=== PATIENT | female | born 1975 | race Caucasian/White ===

== ENCOUNTER → 2019-09-18 14:50 | Outpatient (BNVA) | payer OTHER, SELFPAY | PROVIDERS: Family Provider Family Medicine; Visit Provider Obstetrics & Gynecology | DX: Z12.4 Encounter for screening for malignant neoplasm of cervix (principal); Z12.39 Encounter for other screening for malignant neoplasm of breast; Z30.9 Encounter for contraceptive management, unspecified | CPT/HCPCS: 88175 ==

== ENCOUNTER → 2019-09-28 10:20 | Outpatient (BNVA) | payer OTHER, SELFPAY | PROVIDERS: Family Provider Family Medicine; Visit Provider Obstetrics & Gynecology | DX: N39.0 Urinary tract infection, site not specified (principal) | CPT/HCPCS: 80053; 87077; 87086; 87186 ==

== ENCOUNTER → 2020-03-12 09:01 | Outpatient (BNVA) | payer OTHER, SELFPAY | PROVIDERS: Family Provider Family Medicine; Referring Provider Family Medicine; Visit Provider Podiatrist Foot & Ankle Surgery | DX: M19.072 Primary osteoarthritis, left ankle and foot (principal); M19.071 Primary osteoarthritis, right ankle and foot; M79.671 Pain in right foot; M79.672 Pain in left foot | CPT/HCPCS: 73630 ==

== ENCOUNTER 2020-11-14 14:12 | Outpatient (CLI) | payer OTHER, SELFPAY ==
--- NOTE | 2020-11-14 14:30 | MM_ITS ---
WS: [id number] SCREENING DIGITAL MAMMOGRAM WITH CAD HISTORY: Z12.39 - Encounter for other screening for malignant neoplasm... COMPARISON: None available. Bilateral CC and MLO views submitted. Computer aided detection analyzed. Breast composition: There are scattered areas of fibroglandular density. No suspicious masses, microc alcifications or architectural distortion. MM/[place] [id number] IMPRESSION: BI-RADS: 1-Negative FOLLOW UP: 1 Year Follow-up
== END 2020-11-14 14:13 | disposition home or self-care (01) ==
LOC: RADSHAW 14:15
PROVIDERS: Family Provider Family Medicine; PCP Family Medicine; Visit Provider Obstetrics & Gynecology
DX: Z12.31 Encounter for screening mammogram for malignant neoplasm of breast (principal)
CPT/HCPCS: 77067

== ENCOUNTER → 2021-07-10 09:42 | Outpatient (BNVA) | payer OTHER, SELFPAY | PROVIDERS: Family Provider Family Medicine; PCP Family Medicine; Visit Provider Family Medicine | DX: Z01.89 Encounter for other specified special examinations (principal); K52.9 Noninfective gastroenteritis and colitis, unspecified; L85.3 Xerosis cutis; K92.1 Melena; R60.0 Localized edema; R63.5 Abnormal weight gain; Z13.220 Encounter for screening for lipoid disorders; Z13.6 Encounter for screening for cardiovascular disorders; Z68.41 Body mass index [BMI] 40.0-44.9, adult; Z76.89 Persons encountering health services in other specified circumstances | CPT/HCPCS: 80053; 80061; 83036; 84439; 84443; 85025 ==

== ENCOUNTER 2021-08-26 07:16 | Day surgery (SDC) | payer OTHER, SELFPAY ==
[2021-08-24 10:02] VITALS: BMI 53.1
--- NOTE | 2021-08-26 07:49 | ANES.PREANE2 ---
Pre-Anesthetic Assessment Height/Weight: Height 1.6 m Weight 136.078 kg Preop Diagnosis: diagnostic Operation Date: 08/26/21 08:45 Proposed Procedures p Colonoscopy 62261/k92.1/k52.9(Not Applicable) - Cristofer Luther MD Familial anesthetic complications: None Was Beta Karla taken within 24 hours: Yes Was Clonidine taken within 24 hours: N/A Social No alcohol and No tobacco Exam alert, oriented x 3, clear to auscultation bilaterally and regular rate & rhythm Airway Submandibular: within normal limits Cervical ROM: within normal limits Mallampati: Class II Dentition: full CV/HEM Hypertension and Murmur Metabolic Morbid Obesity Neuropsych Anxiety and Depression Anesthetic Plan ASA status: 3 Anesthesia: MAC Medications/Allergies Home Medications Medication Instructions Recorded Confirmed Last Taken Type B complex with vitamin 1 cap PO DAILY cap 09/18/19 08/24/21 Unknown History Y-kuhjoljtv-uafa capsule fexofenadine 180 mg tablet 180 mg PO DAILY 09/18/19 08/24/21 Unknown History (Bonnie Allergy) hydrochlorothiazide 25 mg tablet 25 mg PO DAILY 09/18/19 08/24/21 Unknown History multivitamin 1 tab PO DAILY 09/18/19 08/24/21 Unknown History propranolol 40 mg tablet 20 mg PO ONCE tab 09/18/19 08/24/21 Unknown History capsaicin 0.1 % topical cream 1 applic TOPICAL BID #60 g 08/04/20 08/24/21 Unknown Rx norgestimate 0.25 mg-ethinyl 1 tab PO DAILY #84 tab 09/29/20 08/24/21 Unknown Rx estradiol 35 mcg tablet (Sprintec (28)) meloxicam 15 mg tablet 15 mg PO DAILY #30 tab 05/04/21 08/24/21 Unknown Rx fluoxetine 10 mg tablet 10 mg PO DAILY 07/10/21 08/24/21 Unknown History losartan 100 mg tablet 100 mg PO DAILY #90 tab 08/11/21 08/24/21 Unknown Rx Allergies Allergy/AdvReac Type Severity Reaction Status Date / Time nitrofurantoin Allergy Severe rash Verified 08/24/21 09:59 sulfamethoxazole Allergy Intermediate swelling Verified 08/24/21 09:59 [From Bactrim] and spots on leg and stomach trimethoprim [From Bactrim] Allergy Intermediate swelling Verified 08/24/21 09:59 and spots on leg and stomach PFSH Anesthesia Medical History Anxiety Is on propranolol which well controlled her symptoms Benign hypertension States that she has borderline elevated blood pressures as well as anxiety and has been placed on propranolol for this since 2007 by her primary care provider Dr. Mg. She states that this medicine works well for both symptomatologies. Oligomenorrhea 06/02/2015---FZL-fiklwk-0.37, lmzszeryx-lbpmga-13.7, hemogram---8.3<13.9/41.9> 286 Surgical History S/P section 11/26/06- Performed by Dr Osorio at [facility] in [place], [place]. Due to PIH and Failure to progess. S/P dilation and curettage 08/18/16- w/ hysteroscopy performed per Dr. Orozco at [place], [place] Status post endometrial ablation 08/18/16- per Dr. Orozco at [facility] [place] Status post myringotomy with tube placement of both ears 1976- in [place] Family History Father Hyperlipidemia Hypertension Heart disease Family/Other Stroke paternal aunt Diabetes paternal aunt Mother Hypertension Heart disease Grandmother Hypertension maternal and paternal Colon cancer, Onset Age: 84 maternal Grandfather Hypertension maternal and paternal Diabetes maternal Denies family history of Ovarian cancer Clotting disorder Breast cancer Anesthesia complication Bleeding disorder Uterine cancer Thyroid condition Social History Smoking and tobacco status: never smoked Alcohol intake: never Female Reproductive History Date of last menstrual period: 08/10/21 Data Anesthesia Cardiac Studies: No Data to Display
[2021-08-26 08:10] LABS: OR HCG Qualitative Urine Negative (Negative)
[2021-08-26] MEDS: sodium chloride 0.9% 1,000 ML 30 ML IV (08:18)
--- NOTE | 2021-08-26 08:21 | P.HP_ITS ---
Same Day Surgery H&P Indication for Procedure/HPI DATE OF PROCEDURE: August 26, 2021 CHIEF COMPLAINT/INDICATIONFOR SURGICAL PROCEDURE: colonoscopy PREOP DIAGNOSIS: diagnostic PLANNED PROCEDURE: Operation Date: 08/26/21 08:45 Proposed Procedures p Colonoscopy 25208/k92.1/k52.9(Not Applicable) - Cristofer Luther MD Medications/Allergies* Home Medications Medication Instructions Recorded Confirmed Type B complex with vitamin 1 cap PO DAILY cap 09/18/19 08/24/21 History R-vphfikusz-ywfp capsule fexofenadine 180 mg tablet 180 mg PO DAILY 09/18/19 08/24/21 History (Bonnie Allergy) hydrochlorothiazide 25 mg tablet 25 mg PO DAILY 09/18/19 08/24/21 History multivitamin 1 tab PO DAILY 09/18/19 08/24/21 History propranolol 40 mg tablet 40 mg PO DAILY tab 09/18/19 08/26/21 History fluoxetine 10 mg tablet 10 mg PO DAILY 07/10/21 08/24/21 History meloxicam 15 mg tablet 15 mg PO DAILY PRN 08/26/21 08/24/21 History Allergies/Adverse Reactions Allergy/AdvReac Type Severity Reaction Status Date / Time nitrofurantoin Allergy Severe rash Verified 08/24/21 09:59 sulfamethoxazole Allergy Intermediate swelling Verified 08/24/21 09:59 [From Bactrim] and spots on leg and stomach trimethoprim [From Bactrim] Allergy Intermediate swelling Verified 08/24/21 09:59 and spots on leg and stomach Current Medications: Generic Name Dose Route Start Last Admin Trade Name Freq PRN Reason Stop Dose Admin Sodium Chloride 1,000 mls @ 30 mls/hr 08/26/21 07:30 08/26/21 08:18 Sodium Chloride 0.9% IV 08/27/21 07:29 30 mls/hr .Q24H [place] Administration Pertinent History/Comorbid Conditions* Medical History (Updated 08/11/21 @ 08:47 by Ashkan Tang DO) Anxiety Is on propranolol which well controlled her symptoms Benign hypertension States that she has borderline elevated blood pressures as well as anxiety and has been placed on propranolol for this since 2007 by her primary care provider Dr. Mg. She states that this medicine works well for both symptomatologies. Oligomenorrhea 06/02/2015---OAG-yotuxv-0.37, aahjzpzic-syelzl-03.7, hemogram---8.3<13.9/41.9> 286 Surgical History (Updated 02/04/21 @ 11:56 by Jayden Patel DPM) S/P section 11/26/06- Performed by Dr Osorio at [facility] in [place], [place]. Due to PIH and Failure to progess. S/P dilation and curettage 08/18/16- w/ hysteroscopy performed per Dr. Orozco at [place], [place] Status post endometrial ablation 08/18/16- per Dr. Orozco at [facility] [place] Status post myringotomy with tube placement of both ears 1976- in [place] Family History (Updated 09/29/20 @ 14:47 by Imani Arthur RN) Colon cancer Grandmother, Onset Age: 84 maternal Diabetes Family/Other paternal aunt Grandfather maternal Heart disease Father Mother Hyperlipidemia Father Hypertension Father Mother Grandmother maternal and paternal Grandfather maternal and paternal Stroke Family/Other paternal aunt Denies family history of Ovarian cancer Clotting disorder Breast cancer Anesthesia complication Bleeding disorder Uterine cancer Thyroid condition Social History Smoking and tobacco status: never smoked Alcohol intake: never Pertinent Exam Findings alert, oriented x 3 and regular rate & rhythm Recommendations Surgery/Procedure today Coding Level of Care Code Acute Sed [employer] for [employer]
[2021-08-26 09:09] VITALS: BP 149/111; PULSE 76; RESP 18; TEMP 36.6; O2SAT 100
[2021-08-26 09:15] VITALS: BP 139/100; PULSE 72; RESP 18; O2SAT 100
[2021-08-26 09:25] VITALS: BP 135/102; PULSE 74; RESP 18; TEMP 36.6; O2SAT 98
--- NOTE | 2021-08-26 13:41 | ANE.PACU2 ---
Inpatient post-anesthesia follow up: Airway intact: Yes Vital signs: Temperature 97.8 F Pulse Rate 74 Respiratory Rate 18 Blood Pressure 135/102 Pulse Oximetry 98 Oxygen Delivery Me thod Room Air Oxygen Flow Rate Fraction of Inspir ed Oxygen Hydration adequate: Yes Nausea and vomiting: No Pain level: 1 Mental status: Baseline
== END 2021-08-26 10:00 | disposition home or self-care (01) ==
PROVIDERS: Anesthesiology; Family Provider Family Medicine; PCP Family Medicine; Visit Provider Surgery
PROC: 0DJD8ZZ Inspection of Lower Intestinal Tract, Via Natural or Artificial Opening Endoscopic (ICD-10-PCS; CPT 45378; principal; 2021-08-26 08:45)
DX: K92.1 Melena (principal); K52.9 Noninfective gastroenteritis and colitis, unspecified; D12.8 Benign neoplasm of rectum; K64.8 Other hemorrhoids; F41.9 Anxiety disorder, unspecified; I10 Essential (primary) hypertension; Z82.49 Family history of ischemic heart disease and other diseases of the circulatory system; Z83.3 Family history of diabetes mellitus; Z82.3 Family history of stroke; E66.01 Morbid (severe) obesity due to excess calories; Z68.43 Body mass index [BMI] 50.0-59.9, adult; F32.9 Major depressive disorder, single episode, unspecified
CPT/HCPCS: 45380; 84703; 88305; J2704; J7030

== ENCOUNTER 2021-09-23 14:53 | Outpatient (CLI) | payer OTHER, SELFPAY ==
--- NOTE | 2021-09-23 15:00 | USCV_ITS ---
Asa Anisha Age: 46 Gender: F : 1975 Exam Date: 09/23/2021 15:25 Ordering Phys: Ashkan Tang DO Technologist: ROLANDO [place] [facility] [place]: SYSTOLIC MURMUR BP: 152 / 96 HR: 85 Rhythm: Sinus Technical Quality: Technically difficult study MEASUREMENTS (Male / Female) Normal Values 2D ECHO LV Diastolic Diameter PLAX 5.1 cm 4.2 - 5.9 / 3.9 - 5.3 cm LV Systolic Diameter PLAX 3.4 cm IVS Diastolic Thickness 1.3 cm 0.6 - 1.0 / 0.6 - 0.9 cm IVS Systolic Thickness 1.8 cm LVPW Diastolic Thickness 1.3 cm 0.6 - 1.0 / 0.6 - 0.9 cm LVPW Systolic Thickness 1.3 cm LVOT Diameter 2.1 cm LV Ejection Fraction 2D Teich 61.8 % LV Ejection Fraction MOD 2C 78.4 % LV Ejection Fraction 2C AL 79.2 % LA Diameter 2.9 cm LA Width 3.9 cm LA Height 4.6 cm RA Width 3.2 cm RA Height 4.8 cm Aorta at Sinotubular Diameter 2.7 cm M-MODE Aortic Annulus Diameter 3.6 cm LA Ao Ratio MM 0.8 MV E Point Septal Separation 0.6 cm DOPPLER AV Peak Velocity 190.5 cm/s LVOT Peak Velocity 128.0 cm/s AV Area Cont Eq vti 2.7 cm squared AV Area Cont Eq pk 2.2 cm squared MV Peak Velocity 153.0 cm/s MV Area PHT 2.8 cm squared Mitral E to A Ratio 1.0 MV E' Velocity 72.5 cm/s Mitral E to MV E' Ratio 10.8 Mitral E to LV E' Lateral Ratio 9.5 Mitral E to LV E' Septal Ratio 12.6 TR Peak Velocity 175.8 cm/s TR Peak Gradient 12.4 mmHg TR Mean Velocity 133.1 cm/s TR Mean Gradient 7.6 mmHg TR Velocity Time Integral 50.5 cm TV Peak E Velocity 67.0 cm/s Right Atrial Pressure 8.0 mmHg Pulmonary Artery Systolic Pressu 20.4 mmHg PV Peak Velocity 116.0 cm/s RV Acceleration Time 0.1 s RV Ejection Time 0.3 s RV AcT/ET 0.5 FINDINGS Left Ventricle Normal left ventricular size and systolic function, EF 73 %. No gross wall motion normalities noted.mild left ventricular hypertrophy. Technically difficult study because of the poor ultrasonic window Right Ventricle Possibly of normal size and ejection fraction Right Atrium Possibly of normal size Left Atrium Possibly of normal size. Mitral Valve No gross abnormalities noted Aortic Valve Aortic valve leaflets could not be visualized well. The valve velocity is 1.9 m/s LV outflow tract velocity is 1.23 m/s. Tricuspid Valve Trace tricuspid valve regurgitation. Pulmonic Valve Pulmonic valve not well visualized. Pericardium Normal pericardium without effusion. Aorta Normal ascending aorta dimension. CONCLUSIONS Normal left ventricular size and systolic function, EF 73 %. No gross wall motion abnormalities noted. Mild concentric left ventricular hypertrophy Aortic valve leaflets could not be visualized well. The valve velocity is 1.9 m/s-elevated, suggesting restriction. Cannot exclude bicuspid valve LV outflow tract velocity is 1.23 m/s. There is no pericardial effusion. Technically difficult study because of the poor ultrasonic window. The LV outflow tract velocity need to be repeated with Valsalva, to rule out any outflow obstruction. If there is no significant outflow obstruction, consider a PAULO to better evaluate the aortic valve Dr Amos Willis MD [facility] (Electronically Signed) Final Date: 24 Sep 2021 07:57 S
== END 2021-09-23 14:54 | disposition home or self-care (01) ==
LOC: RAD 14:54
PROVIDERS: Family Provider Family Medicine; PCP Family Medicine; Visit Provider Family Medicine
DX: I10 Essential (primary) hypertension (principal); R01.1 Cardiac murmur, unspecified; R60.0 Localized edema
CPT/HCPCS: 93306

== ENCOUNTER 2021-11-23 13:30 | Outpatient (CLI) | payer OTHER, SELFPAY ==
--- NOTE | 2021-11-23 13:45 | USCV_ITS ---
Anisha Bray Age: 46 Gender: F : 1975 Exam Date: 11/23/2021 14:06 Ordering Phys: Ashkan Tang DO Technologist: Marlyn Ybarra [place] [facility] [place]: Outflow velocity only BP: 130 / 72 HR: 96 Rhythm: Sinus Technical Quality: Adequate MEASUREMENTS (Male / Female) Normal Values DOPPLER LVOT Peak Velocity 155.7 cm/s FINDINGS Left Ventricle Normal LV size and ejection fraction Right Ventricle Right Atrium Left Atrium Mitral Valve Aortic Valve The LVOT velocity was measured with the Valsalva maneuver. The resting velocity of the outflow tract was around 1.1 m/s. The maximum velocity obtained was 1.7 m/s with Valsalva Tricuspid Valve Pulmonic Valve Pericardium Aorta IVC CONCLUSIONS Limited study specifically to evaluate the LV outflow tract velocity and gradient Normal LV size ejection fraction. There is slight increase in the LV outflow tract velocity from 1.1 m/s to 1.7 m/s with Valsalva. There is no significant change in the LV outflow tract gradient with Valsalva maneuver, based on this finding. Dr Amos Willis MD [facility] (Electronically Signed) Final Date: 25 November 2021 08:23 S
== END 2021-11-23 13:31 | disposition home or self-care (01) ==
PROVIDERS: PCP Family Medicine; Visit Provider Family Medicine
DX: R01.1 Cardiac murmur, unspecified (principal)
CPT/HCPCS: 93308

== ENCOUNTER → 2022-02-24 09:08 | Outpatient (BNVA) | payer OTHER, SELFPAY | PROVIDERS: PCP Family Medicine; Visit Provider Family Medicine | DX: K64.8 Other hemorrhoids (principal); K92.1 Melena; R63.5 Abnormal weight gain; R73.03 Prediabetes; Z68.41 Body mass index [BMI] 40.0-44.9, adult | CPT/HCPCS: 80048; 83036; 84443 ==

== ENCOUNTER → 2022-08-13 09:57 | Outpatient (BNVA) | payer OTHER, SELFPAY | PROVIDERS: PCP Family Medicine; Visit Provider Family Medicine | DX: E11.9 Type 2 diabetes mellitus without complications (principal); R60.0 Localized edema | CPT/HCPCS: 80048; 83036 ==

== ENCOUNTER → 2022-09-20 16:21 | Outpatient (BNVA) | payer OTHER, SELFPAY | PROVIDERS: PCP Family Medicine; Visit Provider Emergency Medicine | DX: R39.9 Unspecified symptoms and signs involving the genitourinary system (principal); N39.0 Urinary tract infection, site not specified; N10 Acute pyelonephritis | CPT/HCPCS: 81000; 87077; 87086; 87184; 87880 ==

== ENCOUNTER → 2022-11-09 16:17 | Outpatient (BNVA) | payer OTHER, SELFPAY | PROVIDERS: PCP Family Medicine; Visit Provider Family Medicine | DX: R60.0 Localized edema (principal); E11.9 Type 2 diabetes mellitus without complications; I10 Essential (primary) hypertension; E87.6 Hypokalemia; E83.42 Hypomagnesemia | CPT/HCPCS: 80048; 82533; 83036 ==

== ENCOUNTER → 2022-12-30 15:10 | Outpatient (BNVA) | payer OTHER, SELFPAY | PROVIDERS: PCP Family Medicine; Visit Provider Nurse Practitioner Family | DX: R39.9 Unspecified symptoms and signs involving the genitourinary system (principal) | CPT/HCPCS: 81000 ==

== ENCOUNTER 2023-02-02 07:34 | Outpatient (CLI) | payer OTHER, SELFPAY ==
--- NOTE | 2023-02-02 07:45 | USCV_ITS ---
Anisha Bray Age: 47 Gender: F : 1975 Exam Date: 02/02/2023 07:56 Ordering Phys: Jamal Cedeno M.D ([email or web address]) Technologist: RENETTA [place] [facility] [place]ication: SHORTNESS OF BREATH BP: 100 / 70 HR: 76 Rhythm: Sinus Technical Quality: Adequate MEASUREMENTS (Male / Female) Normal Values 2D ECHO LVOT Diameter 2.0 cm LV Ejection Fraction MOD 2C 58.1 % LV Ejection Fraction 2C AL 59.4 % LA Diameter 3.1 cm LA Width 3.1 cm LA Height 4.3 cm RA Width 3.0 cm RA Height 3.9 cm Aorta at Sinotubular Diameter 2.4 cm M-MODE Aortic Annulus Diameter 3.3 cm LA Ao Ratio MM 0.9 MV E Point Septal Separation 0.6 cm DOPPLER Right Atrial Pressure 8.0 mmHg FINDINGS Left Ventricle Right Ventricle Right Atrium Left Atrium Mitral Valve Aortic Valve Tricuspid Valve Pulmonic Valve Pericardium Aorta IVC CONCLUSIONS Limited echocardiogram performed to assess LV systolic function. LV systolic function is normal with EF 55 to 60%. No regional wall motion abnormalities. Jamal Cedeno MD (Electronically Signed) Final Date: 06 February 2023 12:52 S
[2023-02-02] MEDS: perflutren protein-a microsphr 0.22 mg/mL SDV 3 mL IV (08:20)
== END 2023-02-02 07:35 | disposition home or self-care (01) ==
PROVIDERS: PCP Family Medicine; Visit Provider Internal Medicine
DX: R06.02 Shortness of breath (principal)
CPT/HCPCS: C8924; Q9956

== ENCOUNTER → 2023-08-31 08:52 | Outpatient (BNVA) | payer OTHER, SELFPAY | PROVIDERS: PCP Family Medicine; Visit Provider Family Medicine | DX: E11.9 Type 2 diabetes mellitus without complications (principal); R01.1 Cardiac murmur, unspecified; I10 Essential (primary) hypertension; Q20.8 Other congenital malformations of cardiac chambers and connections; R60.0 Localized edema | CPT/HCPCS: 80053; 80061; 83036; 84439; 84443; 85027 ==

== ENCOUNTER → 2023-09-15 10:41 | Outpatient (BNVA) | payer OTHER, SELFPAY | PROVIDERS: PCP Family Medicine; Visit Provider Nurse Practitioner | DX: R39.9 Unspecified symptoms and signs involving the genitourinary system (principal) | CPT/HCPCS: 81000 ==

== ENCOUNTER → 2023-12-28 08:54 | Outpatient (BNVA) | payer OTHER, SELFPAY | PROVIDERS: PCP Family Medicine; Visit Provider Family Medicine | DX: I10 Essential (primary) hypertension (principal); Z68.41 Body mass index [BMI] 40.0-44.9, adult; E11.9 Type 2 diabetes mellitus without complications; R60.0 Localized edema; E87.6 Hypokalemia | CPT/HCPCS: 80048; 83036 ==

== ENCOUNTER → 2024-01-07 16:41 | Outpatient (BNVA) | payer OTHER, SELFPAY | PROVIDERS: PCP Family Medicine; Visit Provider Emergency Medicine | DX: N12 Tubulo-interstitial nephritis, not specified as acute or chronic (principal) | CPT/HCPCS: 81000; 87086 ==

== ENCOUNTER → 2024-05-17 10:30 | Outpatient (BNVA) | payer OTHER, SELFPAY | PROVIDERS: PCP Family Medicine; Visit Provider Family Medicine | DX: I10 Essential (primary) hypertension (principal); E11.9 Type 2 diabetes mellitus without complications; G62.9 Polyneuropathy, unspecified; D64.9 Anemia, unspecified; E83.42 Hypomagnesemia | CPT/HCPCS: 80053; 80061; 82043; 82607; 82728; 83036; 83540; 83735; 84443; 85025 ==

== ENCOUNTER → 2024-11-20 08:39 | Outpatient (BNVA) | payer OTHER, SELFPAY | PROVIDERS: PCP Family Medicine; Visit Provider Family Medicine | DX: E11.9 Type 2 diabetes mellitus without complications (principal); I10 Essential (primary) hypertension; E66.9 Obesity, unspecified; Z68.41 Body mass index [BMI] 40.0-44.9, adult; R79.89 Other specified abnormal findings of blood chemistry; E66.813 Obesity, class 3 | CPT/HCPCS: 80053; 80061; 82607; 83036; 84439; 84443 ==

== ENCOUNTER 2025-02-28 08:12 | Outpatient (CLI) | payer OTHER, SELFPAY ==
--- NOTE | 2025-02-28 08:30 | USCV_ITS ---
Anisha Bray Age: 49 Gender: F : 1975 Exam Date: 02/28/2025 09:06 Ordering Phys: Jamal Cedeno M.D ([email or web address]) Technologist: JUAN CARLOS [place] [facility] [place]: Murmur BP: 144 / 70 HR: 69 Rhythm: Sinus Technical Quality: Adequate MEASUREMENTS (Male / Female) Normal Values 2D ECHO LV Diastolic Diameter PLAX 5.0 cm 4.2 - 5.9 / 3.9 - 5.3 cm IVS Diastolic Thickness 1.2 cm 0.6 - 1.0 / 0.6 - 0.9 cm IVS Systolic Thickness 1.7 cm LVPW Diastolic Thickness 1.5 cm 0.6 - 1.0 / 0.6 - 0.9 cm LVPW Systolic Thickness 1.8 cm LVOT Diameter 2.0 cm LV Ejection Fraction 2D Teich 57.6 % LV Ejection Fraction MOD 4C 59.3 % LV Ejection Fraction MOD 2C 68.3 % LV Ejection Fraction 2C AL 70.0 % LA Diameter 3.1 cm RA Systolic Volume 4C AL 62.1 ml RA Systolic Volume 4C MOD 59.6 ml LA Sys Volume AL 61.2 cm cubed LA Sys Volume Index AL 22.8 cm cubed/m squared Aorta at Sinotubular Diameter 2.9 cm M-MODE LA Ao Ratio MM 1.2 AV Cusp Separation MM 1.9 cm DOPPLER AV Peak Velocity 169.0 cm/s LVOT Peak Velocity 139.0 cm/s AV Area Cont Eq vti 3.1 cm squared AV Area Cont Eq pk 2.7 cm squared MV Peak Velocity 136.0 cm/s MV Area PHT 4.8 cm squared Mitral E to A Ratio 1.0 TR Peak Velocity 127.0 cm/s TR Peak Gradient 6.5 mmHg TV Peak E Velocity 95.0 cm/s PV Peak Velocity 107.0 cm/s FINDINGS Left Ventricle Normal left ventricular size, systolic function and wall thickness, with no regional wall motion abnormalities. Left ventricular ejection fraction is estimated at 60 %. Grade II/IV diastolic dysfunction, moderately elevated filling pressures. Right Ventricle Normal right ventricular size and systolic function. Right Atrium Normal right atrial size. Left Atrium Normal left atrial size. IA Septum Normal appearance of the interatrial septum. Mitral Valve Normal mitral valve structure. No mitral valve stenosis or regurgitation. Aortic Valve Normal aortic valve structure. No aortic valve stenosis or regurgitation. Tricuspid Valve Normal tricuspid valve structure. No tricuspid valve stenosis or regurgitation. Normal pulmonary pressure. Pulmonic Valve Normal pulmonic valve structure. No pulmonic valve stenosis or regurgitation. Pericardium No pericardial effusion. Aorta Normal diameter of the aortic root and ascending thoracic aorta. IVC Normal IVC diameter. CONCLUSIONS Normal left ventricular size, systolic function and wall thickness, with no regional wall motion abnormalities. Left ventricular ejection fraction is estimated at 60 %. Grade II/IV diastolic dysfunction, moderately elevated filling pressures. Normal right ventricular size and systolic function. No significant valvular abnormalities. There is no pericardial effusion. Right atrial pressure is around 5 mm of mercury. Edel Johnston MD (Electronically Signed) Final Date: 10 March 2025 00:58 S
== END 2025-02-28 08:13 | disposition home or self-care (01) ==
PROVIDERS: PCP Family Medicine; Visit Provider Internal Medicine
DX: R01.1 Cardiac murmur, unspecified (principal); I51.89 Other ill-defined heart diseases
CPT/HCPCS: 93306